=== PATIENT | female | born 1990 | race Two or more races ===

== ENCOUNTER 2023-08-22 20:07 | Emergency (ER) | payer OTHER ==
[~2023-08-22] VITALS: Ht 124.5 cm; Wt 58.1 kg
[~2023-08-22 20:07] MED LIST: BENADRYL25 MG/STRI PO; TRAMADOL HCL50 MG PO; TUSSIN CF COUG118 M1 PO; ZITHROMAX500 MG PO
[2023-08-22 22:15] LABS: HEMATOCRIT 42.6 % (36.0-45.00); HEMOGLOBIN 14.3 g/dL (12.0-15.00); MEAN CELL VOLUME 77.8 fL (80.00-100.00); MEAN CORPUSCULAR HEMOGLOBIN 26.1 pg (27.00-32.0); MEAN CORPUSCULAR HGB CONC 33.5 g/dl (32.0-36.0); PLATELET COUNT 319 K/uL (150-450); RED BLOOD COUNT 5.48 M/uL (4.00-6.00); RED CELL DISTRIBUTION WIDTH 12.9 % (11.5-14.5)
[2023-08-22 22:17] LABS: URINE APPEARANCE Cloudy; URINE BILIRRUBIN Negative (NEGATIVE); URINE BLOOD Negative; URINE COLOR Yellow; URINE GLUCOSE Negative (NEGATIVE); URINE LEUKOCYTE Large; URINE NITRATE Negative; URINE PROTEIN Negative (NEGATIVE)
[2023-08-22 22:18] LABS: URINE BACTERIA 568.2 uL (0.0-1933); URINE EPITHELIAL CELLS 39.2 uL (0.0-38.8); URINE RBC 2.2 uL (0.0-20.8); URINE WBC 88.9 uL (0.0-23.2)
[2023-08-22 22:34] LABS: CREATININE SERUM 0.79 mg/dL (0.55-1.02); GFR 84.34; POTASSIUM 3.38 mEq/L (3.5-5.1)
[2023-08-22] MEDS ORDERED: ANTIVERT25 M2 PO (23:00)
[2023-08-22] MEDS ORDERED: DUI500 PO (23:00)
[2023-08-22] MEDS ORDERED: PEPCID AC20 MG PO (23:00)
== END 2023-08-23 01:38 | disposition home or self-care (01) ==
LOC: ER 20:07
PROVIDERS: Nurse Practitioner Family
DX: R42 Dizziness and giddiness (principal); N39.0 Urinary tract infection, site not specified